=== PATIENT | male | born 1980 | race African-American/Black ===

== ENCOUNTER 2020-08-25 14:16 | Emergency (ER) | payer OTHER ==
--- NOTE | 2020-08-25 14:53 | PHYS DOC ---
General Adult EDM: Chief Complaint: CPR/FULL ARREST HPI: HPI: The history was obtained from the and EMS. Patient is a 39-year-old male with no reported PMH who presents with a chief complaint of cardiac arrest. Per EMS and the patient was at a local football game. He began complaining initially of some vision changes. They state that he sat down. Became unresponsive with agonal respirations and had some reported tonic-clonic activity. They state shortly after this he did lose pulses. This was a witnessed arrest and CPR was initiated immediately. Upon EMS arrival his initial heart rhythm was asystole. A total of 4 mg of epinephrine was administered prior to hospital arrival. Patient did not have change in his rhythm and no shockable rhythms were identified prior to arrival. Per family p syed has no history of drug or alcohol abuse. Denies any recent travel or immobilizations. Had not been complaining of any symptoms leading up to today. Per EMS estimated loss of pulse was at 1340. Review of Systems: Review of Systems: Review of systems unobtainable secondary to acuity of condition Heart Score: Risk Factors: Risk Factors: DM, Current or recent (<one month) smoker, HTN, HLP, family history of CAD, obesity. Risk Scores: Score 0 - 3: 2.5% MACE over next 6 weeks - Discharge Home Score 4 - 6: 20.3% MACE over next 6 weeks - Admit for Clinical Observation Score 7 - 10: 72.7% MACE over next 6 weeks - Early Invasive Strategies Physical Exam: PE: Constitutional: Unresponsive HENT: Eyes:Pupils 4 mm, fixed, nonreactive. Cardiovascular: Asystole and pulseless. Lungs & Thorax: Endotracheal tube in place. Bilateral breath sounds. Rhonchorous. Abdomen: Soft nondistended Skin: Warm, dry, no erythema, no rash. [] Extremities: 20-gauge IV in right AC Neurologic: GCS 3T EKG: EKG: [] Radiology/Procedures: Impression: The patient had a high probability of sudden, clinically significant deterioration, which required the highest level of physician preparedness to intervene urgently. I managed life or organ supporting interventions that required frequent re-assessment throughout their stay in the emergency department. The total critical care time spent managing their case, separate from other billable procedures, was 34 minutes. Course & Med Decision Making: Course & Med Decision Making Pertinent Labs and Imaging studies reviewed. (See chart for details) [] [] Patient is a 39-year-old male who arrives via EMS with a chief complaint of cardiac arrest. Patient experienced a witnessed cardiac arrest prior to arrival. Reportedly was complaining of vision changes and did have tonic-clonic activity prior to arrival. Asystole without shockable rhythm in route. Received 4 mg of epinephrine prior to arrival. Upon arrival immediate pulse and rhythm check was performed. Initial rhythm asystole. 1 g of calcium chloride and 50 mill equivalents of sodium bicarbonate was administered. I did confirm endotracheal placement with a glide scope and this did appear to be in appropriate position. Multiple rounds of CPR were performed. Additional 5 mg of epinephrine was administered. With multiple pulse and rhythm check the patient's rhythm remained in asystole. I did update the family including and brothers in the family room. Family was present at bedside to observe resuscitative efforts. After 60 minutes of resuscitative efforts patient's rhythm did not change from asystole. He never did regain pulses. No signs of life were noted. After 60 minutes of resuscitation decision was made to terminate resuscitative efforts. Time of 1444. Family at bedside. Pastoral care consulted. COVID-19 CRITERIA: The patient was evaluated during the global COVID-19 pandemic, and that diagnosis was suspected/considered upon their initial presentation. Their evaluation, treatment and testing was consistent with current guidelines for patients who present with complaints or symptoms that may be related to COVID-19. Jaswinder Disclaimer: Jaswinder Disclaimer: This electronic medical record was generated, in whole or in part, using a voice recognition dictation system. Departure Departure Impression: Primary Impression: Cardiac arrest Disposition: 20 Justicifation of Admission Dx: Justifications for Admission: Justification of Admission Dx: N/A NEY GONZALEZ DO Aug 25, 2020 14:53
[2020-08-25] MEDS ORDERED: CALCIUM CHLORIDE 1,000 MG/10 ML DISP.SYRIN ONE (16:00)
[2020-08-25] MEDS ORDERED: EPINEPHrine SYRINGE 1 MG/10 ML SYRINGE ONE (16:00)
[2020-08-25] MEDS ORDERED: SODIUM BICARB ADULT 8.4% 50 MEQ/50 ML DISP.SYRIN. ONE (16:00)
== END 2020-08-25 17:28 | disposition expired ==
LOC: ER 14:16
DX: I46.9 Cardiac arrest, cause unspecified (principal)
CPT/HCPCS: 51702; 92950; 99291; J0171; J3490; 31500